=== PATIENT | male | born 1935 | race Caucasian/White ===

== ENCOUNTER → 2018-10-31 | Outpatient (REF) | payer MEDICARE ==
[~2018-10-31] MED LIST: AMLODIPINE BESYL5 MG PO; ANTIVERT PO; BENICAR40 MG PO; C 250 PO; COLCHICINE0.6 M1 OR; CONTRAVE 8-90 M1 TAB PO; COUMADIN1 MG PO; COUMADIN3 MG PO; COUMADIN5 MG PO; FAMOTIDINE20 M1 PO; FISH OIL1000 M2 PO; HYALURONIC20 MG PO; LORTAB5 PO; LYCOPENE PO; MEDDOSEPAK OR; MULTI VIT PO; OMEPRAZOLE10 MG PO; PRAVASTATIN10 MG PO; SAW PALMETTO1 CAP PO; SELENIUM200 MC1 PO; TURMERI1 PO; ULORIC40 MG PO; VITAMIN D2000 UNI2 PO; VITAMIN E400 UNIT PO; ZOFRAN ODT4 MG PO
[2018-10-31 08:48] LABS: CREATININE 1.5 mg/dL (0.7-1.3)
[2018-10-31 08:49] LABS: POTASSIUM 4.2 mmol/l (3.5-5.1)
== END | disposition home or self-care (01) ==
LOC: LAB 08:04
PROVIDERS: ATTEND Nurse Practitioner
DX: N18.3 Chronic kidney disease, stage 3 (moderate) (principal)

== ENCOUNTER 2019-09-05 | Emergency (ER) | payer MEDICARE ==
[2019-09-05] MEDS ORDERED: [UNRECOGNIZED DRUG - CODE] PO (06:07)
[2019-09-05] MEDS ORDERED: CIMETIDINE PO (06:08)
[2019-09-05] MEDS ORDERED: CO Q-10150 MG PO (06:09)
[2019-09-05] MEDS ORDERED: GNP LANSOPRAZOL15 MG PO (06:10)
[2019-09-05 06:49] LABS: HEMATOCRIT 49.7 % (39.0-50.0); HEMOGLOBIN 15.9 g/dl (14.0-18.0); IMMATURE GRANULOCYTES 0.5 % (0.0-5.0); MEAN CELL VOLUME 91.7 fL CALC (80.0-100.0); MEAN CORPUSCULAR HGB 29.3 pG CALC (26.0-32.0); NEUT# 4.02 thou/uL (1.82-7.42); RED BLOOD COUNT 5.42 mill/uL (4.70-6.10); RED CELL DISTRI WIDTH 16.2 % (11.5-15.5)
[2019-09-05 07:02] LABS: ALBUMIN 4.1 g/dL (3.2-5.0); ALKALINE PHOSPHATASE 89 u/l (38-126); ANION GAP 14 (6-22 (CALC)); BILIRUBIN, TOTAL 1.1 mg/dL (0.0-1.4); BUN 18 mg/dL (8-23); BUN/CREATININE RATIO 16 (12-20 (CALC)); CARBON DIOXIDE 25 mmol/l (22-30); CHLORIDE 104 mmol/l (95-108); CREATININE 1.1 mg/dL (0.7-1.3); GFR > 60 ML/MIN (>=60 (CALC)); GFR FOR AFR.AMER. > 60 ML/MIN (>=60 (CALC)); POTASSIUM 4.3 mmol/l (3.5-5.1); SGOT/AST 46 u/l (19-48); SODIUM 139 mmol/l (137-146); TOTAL PROTEIN 7.5 g/dL (6.3-8.2)
[2019-09-05 07:09] LABS: INTERNATIONAL NORMALIZED RATIO 2.4 RATIO (0.7-1.3)
[2019-09-05 07:30] LABS: URINE BILIRUBIN - DIPSTICK NEGATIVE (NEGATIVE); URINE BLOOD DIPSTICK NEGATIVE (NEGATIVE); URINE COLOR YELLOW; URINE GLUCOSE - DIPSTICK NEGATIVE (NEGATIVE); URINE KETONE NEGATIVE (NEGATIVE); URINE LEUK ESTERASE NEGATIVE (NEGATIVE); URINE NITRITE - DIPSTICK NEGATIVE (Negative); URINE PROTEIN - DIPSTICK TRACE mg/dL (NEG-TRACE); URINE UROBILINOGEN - DIPSTICK 0.2 E.U./dL (0.2)
== END 2019-09-05 08:11 | disposition home or self-care (01) ==
PROVIDERS: Emergency Medicine
DX: R31.9 Hematuria, unspecified (principal); N40.0 Benign prostatic hyperplasia without lower urinary tract symptoms; Z86.718 Personal history of other venous thrombosis and embolism; Z79.01 Long term (current) use of anticoagulants

== ENCOUNTER 2019-12-04 13:22 | Inpatient (IN) | payer MEDICARE ==
[~2019-12-04] VITALS: Ht 175.3 cm; Wt 97.1 kg
[2019-12-04] VITALS (9 sets, daily range): BP systolic 106–141; BP diastolic 67–90
[~2019-12-04 13:22] MED LIST changes: +CIMETIDINE PO; +CO Q-10150 MG PO; +GNP LANSOPRAZOL15 MG PO; +[UNRECOGNIZED DRUG - CODE] PO
--- NOTE | 2019-12-04 13:22 | NUR ---
PATIENT TO ROOM VIA EMS AND PHYSICIAN AT BEDSIDE FOR EVAL
[2019-12-04 14:23] LABS: HEMATOCRIT 52.9 % (39.0-50.0); HEMOGLOBIN 17.1 g/dl (14.0-18.0); IMMATURE GRANULOCYTES 0.6 % (0.0-5.0); MEAN CELL VOLUME 97.1 fL CALC (80.0-100.0); MEAN CORPUSCULAR HGB 31.4 pG CALC (26.0-32.0); MEAN CORPUSCULAR HGB CONC 32.3 g/dL CAL (32.0-36.0); NEUT# 5.41 thou/uL (1.82-7.42); RED BLOOD COUNT 5.45 mill/uL (4.70-6.10); RED CELL DISTRI WIDTH 15.2 % (11.5-15.5)
[2019-12-04 14:35] LABS: ALBUMIN 4.2 g/dL (3.2-5.0); CREATININE 1.4 mg/dL (0.7-1.3); POTASSIUM 4.9 mmol/l (3.5-5.1); TOTAL PROTEIN 7.6 g/dL (6.3-8.2)
[2019-12-04 14:43] LABS: D-DIMER 12.4 mg/L (0.19-0.60)
--- NOTE | 2019-12-04 14:45 | NUR ---
PT SITTING UP ON STRETCHER. NO APPARENT DISTRESS. RESP EVEN AND UNLABORED. AFEBRILE. ADVISED OF WAIT TIME FOR TEST RESULTS. PT VOICED UNDERSTANDING. CALL LIGHT WITHIN REACH.
[2019-12-04 14:49] LABS: BILIRUBIN, TOTAL 1.5 mg/dL (0.0-1.4)
[2019-12-04 14:54] LABS: PROTHROMBIN TIME 10.9 SECONDS (9.0-12.5)
--- NOTE | 2019-12-04 16:05 | NUR ---
PT RETURNED FROM CT. NO APPARENT DISTRESS. IV FLUIDS INFUSING. SITE HEALTHY. CALL LIGHT WITHINR EACH. RESP EVEN AND UNLABORED. SATS 94 ON RA
--- NOTE | 2019-12-04 16:51 | NUR ---
MD AT BEDSIDE TO DISCUSS CLINICAL RESULTS AND ADMIT POC. PT VOICED UNDERSTANDING.
[2019-12-04] MEDS ORDERED: TOPROL XL50 MG PO (17:03)
[2019-12-04] MEDS ORDERED: FINASTERIDE5 MG PO (17:04)
[2019-12-04] MEDS ORDERED: ASPIRIN81 MG PO (17:04)
--- NOTE | 2019-12-04 17:40 | NUR ---
COVID 19 SWAB OBTAINED FROM LEFT NARE. PT TOLERATED WELL.
--- NOTE | 2019-12-04 18:25 | NUR ---
REPORT CALLED TO ANGEL COVINGTON ICU PT UP ON IV FLUIDS SITE HEALTHY. VSS.
--- NOTE | 2019-12-04 18:45 | NUR ---
: PATIENT ARRIVES VIA ER WHEELCHAIR ACCOMPANIED BY ER NURSE. ON RA, NO SOB NOTED. PT REPORTS HE ONLY BECOMES SOB WITH EXERTION. NO ACUTE DISTRESS SHOWN. ALERT AND ORIENTED X4, ABLE TO WALK TO ICU BED 1 WITHOUT DIFFICULTY. PANTS AND SHOES TAKEN OFF. SR-ST ON TELEMETRY. AFEBRILE. WEIGHT TAKEN. BP WNL. NKDA. PLACED PATIENT ON 2L/MIN NC DUE TO SATS DROP TO 88%-91% WHEN MOVING AROUND OR CONVERSATING, PATIENT FINGERS ARE COLD WELL. NURSING ASSESSMNET PERFORMED. PATIENT ABLE TO RESPOND TO ALL ADMISSION QUESTIONS. RAC 20 G EMS SITE INTCAT. PLACED A R-HAND 22G IV SITE. STARTED HEPARIN DRIP AT 1948 PER [facility] DOSE HEPARIN PROTOCOL AFTER RECEIVING PTT, ADMINISTERED HEPARIN BOLUS WELL. POC FOR TONIGHT DISCUSSED, PATIENT UNDERSTANDS AND AGREES. PATIENT REQUESTS TO KEEP HIS OWN COMPRESSION STOCKINGS ON. LAST BM 12/03/19. REPORTS HE HAS NOT ATEN BUT IS NOT HUNGRY. CHILLER TENDER COUGH PRESENT. CALL LIGHT WITHIN REACH. URINAL AT BEDSIDE. BASELINE.
[2019-12-04 19:13] LABS: URINE BILIRUBIN - DIPSTICK NEGATIVE (NEGATIVE); URINE BLOOD DIPSTICK NEGATIVE (NEGATIVE); URINE COLOR YELLOW; URINE GLUCOSE - DIPSTICK NEGATIVE (NEGATIVE); URINE KETONE NEGATIVE (NEGATIVE); URINE LEUK ESTERASE NEGATIVE (NEGATIVE); URINE NITRITE - DIPSTICK NEGATIVE (Negative); URINE PROTEIN - DIPSTICK 100 mg/dL (NEG-TRACE); URINE SPECIFIC GRAVITY 1.025; URINE UROBILINOGEN - DIPSTICK 0.2 E.U./dL (0.2)
[2019-12-04 19:14] LABS: URINE RBC 0-2 RBC/hpf (0-5); URINE WBC 0-2 WBC/hpf (0-5)
--- NOTE | 2019-12-04 20:20 | NUR ---
PATIENT'S SIGNIFICANT OTHER MARVIN, CALLED HERE FOR UPDATES, UPDATE GIVEN, REPORTS SHE WILL RELAY THIS TO PATIENT'S SON. 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 I LET HER KNOW SHE CAN BRING TO ER ENTRANCE TO DROP THEM OFF.
--- NOTE | 2019-12-04 21:09 | NUR ---
PATIENT'S SIGNIFICANT OTHER CALLED TO ASK HOW PATIENT IS DOING, UPDATE GIVEN.
--- NOTE | 2019-12-04 23:04 | NUR ---
PATIENT RESTS WITH EYES CLOSED. HOB ABOUT 30 DEGREES. SR ON TELE, HR RANGES 90'S. SATS 91% ON RA. NO ACUTE DISTRES SHOWN. CALL LIGHT WITHIN REACH.
[2019-12-05] VITALS (13 sets, daily range): BP systolic 91–139; BP diastolic 54–89
--- NOTE | 2019-12-05 | NUR ---
PATIENT AWAKENS EASILY WHN SPOKEN TO. REPORTS HE IS UNABLE TO SLEEP, ASSISTED WITH TURNING TO HIS LEFT SIDE. NO ACUTE DISTRESS SHOWN. NO NEEDS AT THIS TIME. EMPTIED 400 ML FROM URINAL. CALL LIGHT WITHIN REACH.
--- NOTE | 2019-12-05 02:21 | NUR ---
BLOD DRAWN FOR PTT DUE AT 0200. PATIENT BECOMES RESTLESS DUE TO I HAD TO ATTEMPT A COUPLE OF TIMES WITH A BUTTERFLY NEEDLE TO DRAW BLOOD AND HE REPORTED IT WAS VERY PAINFUL. NOW LAYS ON RIGHT SIDE. NO NEEDS AT THIS TIME. CALL LIGHT WITHIN REACH.
--- NOTE | 2019-12-05 03:16 | NUR ---
PATIENT IS AWAKE, PLACED THE PULSE OX BACK ON MONITOR SINCE PATIENT TURNS AND IT COMES OFF, SATS 93% ON 2L/MIN NC. NO SOB NOTED. EMPTIED URINAL. CALL LIGHT WITHIN REACH.
[2019-12-05 05:22] LABS: HEMATOCRIT 49.9 % (39.0-50.0); HEMOGLOBIN 16.3 g/dl (14.0-18.0); IMMATURE GRANULOCYTES 0.6 % (0.0-5.0); MEAN CELL VOLUME 96.7 fL CALC (80.0-100.0); MEAN CORPUSCULAR HGB 31.6 pG CALC (26.0-32.0); MEAN CORPUSCULAR HGB CONC 32.7 g/dL CAL (32.0-36.0); NEUT# 4.54 thou/uL (1.82-7.42); RED BLOOD COUNT 5.16 mill/uL (4.70-6.10); RED CELL DISTRI WIDTH 15.2 % (11.5-15.5)
[2019-12-05 06:15] LABS: ANION GAP 14 (6-22 (CALC)); BUN 22 mg/dL (8-23); BUN/CREATININE RATIO 18 (12-20 (CALC)); CARBON DIOXIDE 22 mmol/l (22-30); CHLORIDE 108 mmol/l (95-108); CREATININE 1.3 mg/dL (0.7-1.3); GFR 53 ML/MIN (>=60 (CALC)); GFR FOR AFR.AMER. > 60 ML/MIN (>=60 (CALC)); SODIUM 139 mmol/l (137-146)
--- NOTE | 2019-12-05 08:02 | NUR ---
PT RESTING IN BED, ALERT AND ORIENTED. BLOOD DRAWN FOR PTT. RESPIRATIONS EVEN AND UNLABORED ON O2 @ 2L VIA NC. LUNGS SOUND CLEAR/DIMINISHED. PEDAL PULSES ARE STRONG. PT DENIES ANY PAIN OR DISCOMFORT AT THIS TIME. PT PROVIDED WITH BREAKFAST AND COFFEE, PT STATES "I DON'T FEEL HUNGRY, I FEEL LIKE I'VE LOST MY APPETITE LATELY." ENCOURAGED PT TO TRY TO EAT. TELE IN PLACE. CALL HERCULES WITHIN REACH. WILL CONTINUE TO MONITOR.
--- NOTE | 2019-12-05 08:29 | NUR ---
DR. LANDRY AT BEDSIDE.
--- NOTE | 2019-12-05 09:50 | NUR ---
ASSISTED PT TO THE RESTROOM AND BACK TO BED. PT HAD A BOWEL MOVEMENT. PROVIDED PT WITH PERSONAL ITEMS FROM SIGNIFICANT OTHER. SAFETY PRECAUTIONS IN PLACE. WILL CONTINUE TO MONITOR.
--- NOTE | 2019-12-05 10:20 | NUR ---
PT RESTING IN BED, TALKING ON THE PHONE. TELE IN PLACE. RESPIRATIONS EVEN AND UNLABORED ON O2 @ 2L VIA NC. SAFETY PRECAUTIONS IN PLACE. WILL CONTINUE TO MONITOR.
--- NOTE | 2019-12-05 12:51 | NUR ---
PT RESTING IN BED. RESPIRATIONS EVEN AND UNLABORED ON O2 @ 2L VIA NC. SAFETY PRECAUTIONS IN PLACE. WILL CONTINUE TO MONITOR.
--- NOTE | 2019-12-05 19:20 | NUR ---
AT BEDSIDE WITH PT. DISCUSSED POC. PT DENIED RESP DIFF, NO NEEDS AT THIS TIME. CALL HERCULES IN REACH.
--- NOTE | 2019-12-05 19:30 | NUR ---
PATIENT IS ALERT AND ORIENTED X4, SITS ON THE SIDE OF HIS BED. NO ACUTE DISTRESS SHOWN. REPORTS HE IS ABLE TO BREATHE BETTER AND IS NOT SOB YESTERDAY. ON 2L/MIN NC, SATS 96%. HE IS ABLE TO WALK TO THE BATHROOM WITH 02 AND IV INFSUIONS, HAS A WEAK GAIT, WASHES HIS TEETH AND HIS AFCE, FIXES HIS HAIR. NO REPORTS OF PAIN. NURSING ASSESSMENT PERFORMED. RAC AND RH IV SITES ARE INTACT AND FUNCTIONING PROPERLY. HEPARIN DRIP INFUSING AT 33 ML/HR, NS AT KVO ON R-HAND IV SITE. AFEBRILE. SR ON TELEMETRY. BP WNL. SITS ONSIDE OF BED NOW. IS NOT WEARING HIS BILAT HEARING AIDS, THEY ARE ON BEDSIDE TABLE. EMPTIED URINAL. REPORTS HE WAS ABLE TO TALK TO DR LANDRY AND POC. POC FOR TONIGHT DISCUSSED, PATIENT UNDERSTANDS AND AGREES. NO OTHER NEEDS AT THIS TIME. CALL LIGHT WITHIN REACH.
--- NOTE | 2019-12-05 21:17 | NUR ---
WENT IN ROOM TO PLACE BP CUFF ON RIGHT ARM DUE TO BP READING LOW ON LEFT ARM.MNEW READING WNL. NO ACUTE DISTRESS SHOWN. CALL LIGHT WITHIN REACH.
[2019-12-06] VITALS (8 sets, daily range): BP systolic 91–117; BP diastolic 48–79
--- NOTE | 2019-12-06 01:49 | NUR ---
PATIENT USES URINAL, SITS ON SIDE OF BED, COMPLAINS HE SWEATS AT NIGHTS SOMETIMES. AFEBRILE, SR ON TELE, BP WNL. NO ACUTE DISTRES SHOWN, WEARS NC AT 2 L/MIN, SATS WNL. NO NEEDS AT THIS TIME. LAYS BACK IN BED. CALL LIGHT WITHIN REACH.
[2019-12-06 05:45] LABS: HEMATOCRIT 44.1 % (39.0-50.0); HEMOGLOBIN 14.4 g/dl (14.0-18.0); MEAN CELL VOLUME 97.1 fL CALC (80.0-100.0); MEAN CORPUSCULAR HGB 31.7 pG CALC (26.0-32.0); MEAN CORPUSCULAR HGB CONC 32.7 g/dL CAL (32.0-36.0); RED BLOOD COUNT 4.54 mill/uL (4.70-6.10); RED CELL DISTRI WIDTH 15.5 % (11.5-15.5)
--- NOTE | 2019-12-06 05:45 | NUR ---
ABLE TO DRAW BLOOD FOR LABS THIS MORNING. [facility] EMS SITE REMOVED. 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 NO ACUTE DISTRESS SHOWN. NO NEEDS AT THIS TIME. CALL LIGHT WITHIN REACH.
--- NOTE | 2019-12-06 06:00 | NUR ---
COFFEE PROVIDED, PT AGAIN STATED SHE FEELS MUCH BETTER. NO C/O SOB OR PAIN. CALL HERCULES IN REACH.
--- NOTE | 2019-12-06 06:22 | NUR ---
PATIENT USES URINAL, ASKS WHAT LAB RESULTS ARE BACK YET. QUESTIONS ANSWERED. STILL AWAITING MORE BLOOD RESULTS.
[2019-12-06 06:24] LABS: ALKALINE PHOSPHATASE 82 u/l (38-126); ANION GAP 10 (6-22 (CALC)); BUN 22 mg/dL (8-23); BUN/CREATININE RATIO 18 (12-20 (CALC)); CARBON DIOXIDE 24 mmol/l (22-30); CHLORIDE 108 mmol/l (95-108); CREATININE 1.2 mg/dL (0.7-1.3); GFR 58 ML/MIN (>=60 (CALC)); GFR FOR AFR.AMER. > 60 ML/MIN (>=60 (CALC)); POTASSIUM 4.7 mmol/l (3.5-5.1); SGOT/AST 39 u/l (19-48); SODIUM 138 mmol/l (137-146)
[2019-12-06 06:51] LABS: ALBUMIN 3.1 g/dL (3.2-5.0); TOTAL PROTEIN 5.9 g/dL (6.3-8.2)
--- NOTE | 2019-12-06 08:06 | NUR ---
ENTERED ROOM FOR ASSESSMENT, MEDICATION, AND BRING IN BREAKFAST TRAY. PT AWAKE & ALERT. ABLE TO REPOSITION SELF. PT EXPRESSES INTEREST IN TAKING A SHOWER, DISCUSSED BEDSIDE BATH. PT STATES HE IS ABLE TO TAKE DEEP BREATHS AND BREATH "GOOD" ON RA; NC REMOVED THIS AM AROUND 6 PER SHIFT REPORT. DISCUSSED POC FOR TODAY. DISCUSSED DIFFERENT PO BLOOD THINNERS.
--- NOTE | 2019-12-06 09:28 | NUR ---
dr muse @bedside assessing pt, discussing poc; including med change
[2019-12-06] MEDS ORDERED: ELIQUIS5 MG PO (10:14)
--- NOTE | 2019-12-06 10:15 | NUR ---
discussed new poc with pt & educated on eliquis, answered pts questions. pt refusing bath & teeth brushing right now, will request a shower if he has to stay again tonight. dr muse placed order for dc pending echo results. will call [facility] to deliver new rx. pt using urinal, curtains drawn.
--- NOTE | 2019-12-06 10:20 | NUR ---
PHILIP, NUTRITION, @BEDSIDE.
--- NOTE | 2019-12-06 10:30 | NUR ---
PT NEGATIVE FOR COVID-19, PER LAB.
--- NOTE | 2019-12-06 10:32 | NUR ---
[facility] WILL DELIVER RX TO PERSONAL PROPERTY ASSESSOR FOR US TO BANDAGE WRAPPING MACHINE OPERATOR & BRING BACK TO PT.
--- NOTE | 2019-12-06 11:07 | NUR ---
PT REMOVED FROM ISOLATION PRECAUTIONS D/T NEGATIVE COVID RESULTS. SPENT TIME IN ROOM JUST TALKING WITH PT.
--- NOTE | 2019-12-06 11:32 | NUR ---
PT SITTING ON THE SIDE OF THE BED, TALKING ON PERSONAL CELL TO GIRLFRIEND. EATING LUNCH OFF BEDSIDE TABLE.
--- NOTE | 2019-12-06 12:44 | NUR ---
U/S ECHO BEING DONE @BEDSIDE.
--- NOTE | 2019-12-06 14:41 | NUR ---
dietary @bedside for dinner preferences. d/c pending echo preliminary results.
--- NOTE | 2019-12-06 15:37 | NUR ---
called radiology for echo preliminary report status
--- NOTE | 2019-12-06 16:02 | NUR ---
prelimary results sent to dr muse, who will consult dr ovalle. pt states "he's at the point in his life where he figures he only has a couple years left and doesnt want to live it running around to all kinds of doctors."
--- NOTE | 2019-12-06 16:35 | NUR ---
PT EDUCATED ON DC INSTRUCTIONS, INCLUDING WHEN TO RETURN TO ER, TO WATCH FOR BLEEDING, AVOID ACTIVITIES THAT CAUSE BLEEDING, IMPORTANCE OF F/UP CARE. PT WILL CALL TO SCHEDULE APPT WITH R[facility]WAN ON MONDAY. PT WILL LICENSED PHYSICAL THERAPY ASSISTANT MEDICATION AT [facility] ON WAY HOME.
--- NOTE | 2019-12-06 16:45 | NUR ---
PT DRESSED SELF, WILL CALL LONGTIME GIRLFRIEND GEMINI TO COME PICK HIM UP.
--- NOTE | 2019-12-06 16:52 | NUR ---
PT TAKEN OUT BY WC IN STABLE CONDITION WITH ALL BELONGINGS. PICKED UP BY GEMINI.
== END 2019-12-06 16:52 | disposition home or self-care (01) | DRG 175 ==
LOC: ED 13:22 → ED-I 16:30 → ED 16:56 → ICU 16:57
PROVIDERS: Family Medicine; ADMIT Internal Medicine; ATTEND Internal Medicine
DX: I26.09 Other pulmonary embolism with acute cor pulmonale (principal); R06.03 Acute respiratory distress; I12.9 Hypertensive chronic kidney disease with stage 1 through stage 4 chronic kidney disease, or unspecified chronic kidney disease; N18.9 Chronic kidney disease, unspecified; R79.89 Other specified abnormal findings of blood chemistry; N40.0 Benign prostatic hyperplasia without lower urinary tract symptoms; M19.90 Unspecified osteoarthritis, unspecified site; Z86.718 Personal history of other venous thrombosis and embolism; Z20.828 Contact with and (suspected) exposure to other viral communicable diseases
CPT/HCPCS: J1644; Q9967

== ENCOUNTER 2020-05-29 18:59 | Emergency (ER) | payer MEDICARE ==
[~2020-05-29] VITALS: Ht 175.3 cm; Wt 102.6 kg
[~2020-05-29 18:59] MED LIST changes: +ASPIRIN81 MG PO; +ELIQUIS5 MG PO; +FINASTERIDE5 MG PO; +TOPROL XL50 MG PO
[2020-05-29] MEDS ORDERED: ALLOPURINOL100 MG PO (19:38)
[2020-05-29] MEDS ORDERED: PRESSER VISION PO (19:40)
[2020-05-29] MEDS ORDERED: PROSTA GENIX PO (19:41)
[2020-05-29] MEDS ORDERED: [UNRECOGNIZED DRUG - OTHER] PO (19:42)
[2020-05-29 19:43] LABS: HEMATOCRIT 47.7 % (39.0-50.0); HEMOGLOBIN 15.7 g/dl (14.0-18.0); IMMATURE GRANULOCYTES 0.4 % (0.0-5.0); MEAN CELL VOLUME 99.4 fL CALC (80.0-100.0); MEAN CORPUSCULAR HGB 32.7 pG CALC (26.0-32.0); MEAN CORPUSCULAR HGB CONC 32.9 g/dL CAL (32.0-36.0); NEUT# 5.74 thou/uL (1.82-7.42); RED BLOOD COUNT 4.8 mill/uL (4.70-6.10); RED CELL DISTRI WIDTH 14.6 % (11.5-15.5)
[2020-05-29] MEDS ORDERED: MAG OXIDE400 MG PO (19:44)
[2020-05-29 19:56] LABS: ALBUMIN 4.2 g/dL (3.2-5.0); ALKALINE PHOSPHATASE 99 u/l (38-126); ANION GAP 15 (6-22 (CALC)); BILIRUBIN, TOTAL 1.3 mg/dL (0.0-1.4); BUN 21 mg/dL (8-23); BUN/CREATININE RATIO 19 (12-20 (CALC)); CARBON DIOXIDE 23 mmol/l (22-30); CHLORIDE 102 mmol/l (95-108); CREATININE 1.1 mg/dL (0.7-1.3); GFR > 60 ML/MIN (>=60 (CALC)); GFR FOR AFR.AMER. > 60 ML/MIN (>=60 (CALC)); POTASSIUM 4.5 mmol/l (3.5-5.1); SGOT/AST 43 u/l (19-48); SODIUM 135 mmol/l (137-146); TOTAL PROTEIN 7.1 g/dL (6.3-8.2)
[2020-05-29 21:44] LABS: URINE BILIRUBIN - DIPSTICK NEGATIVE (NEGATIVE); URINE BLOOD DIPSTICK NEGATIVE (NEGATIVE); URINE COLOR YELLOW; URINE GLUCOSE - DIPSTICK NEGATIVE (NEGATIVE); URINE KETONE NEGATIVE (NEGATIVE); URINE LEUK ESTERASE NEGATIVE (NEGATIVE); URINE NITRITE - DIPSTICK NEGATIVE (Negative); URINE PROTEIN - DIPSTICK NEGATIVE (NEG-TRACE); URINE UROBILINOGEN - DIPSTICK 0.2 E.U./dL (0.2)
[2020-05-29 22:07] VITALS: BP 126/61
== END 2020-05-29 22:07 | disposition home or self-care (01) ==
LOC: ED 18:59
PROVIDERS: Family Medicine
DX: B34.9 Viral infection, unspecified (principal); I12.9 Hypertensive chronic kidney disease with stage 1 through stage 4 chronic kidney disease, or unspecified chronic kidney disease; N18.3 Chronic kidney disease, stage 3 (moderate); C91.10 Chronic lymphocytic leukemia of B-cell type not having achieved remission; Z20.828 Contact with and (suspected) exposure to other viral communicable diseases; Z86.718 Personal history of other venous thrombosis and embolism

== ENCOUNTER 2021-04-04 09:32 | Emergency (ER) | payer MEDICARE ==
[~2021-04-04] VITALS: Ht 175.3 cm; Wt 120.0 kg
[~2021-04-04 09:32] MED LIST changes: +ALLOPURINOL100 MG PO; +MAG OXIDE400 MG PO; +PRESSER VISION PO; +PROSTA GENIX PO; +[UNRECOGNIZED DRUG - OTHER] PO
[2021-04-04] MEDS ORDERED: ELDERBERRY PO (10:05)
[2021-04-04] MEDS ORDERED: ELIQUIS5 MG PO (10:07)
[2021-04-04] MEDS ORDERED: FEVERFEW380 MG PO (10:09)
[2021-04-04] MEDS ORDERED: [UNRECOGNIZED DRUG - OTHER] PO (10:11)
[2021-04-04] MEDS ORDERED: GRAPESEED PO (10:12)
[2021-04-04] MEDS ORDERED: PRESERVISION PO (10:17)
[2021-04-04] MEDS ORDERED: B121000 MC1 PO (10:20)
[2021-04-04 10:31] LABS: HEMATOCRIT 44.1 % (39.0-50.0); HEMOGLOBIN 13.8 g/dl (14.0-18.0); IMMATURE GRANULOCYTES 0.1 % (0.0-5.0); MEAN CELL VOLUME 106.3 fL CALC (80.0-100.0); MEAN CORPUSCULAR HGB 33.3 pG CALC (26.0-32.0); MEAN CORPUSCULAR HGB CONC 31.3 g/dL CAL (32.0-36.0); PLATELET COUNT 181 thou/uL (130-400); RED BLOOD COUNT 4.15 mill/uL (4.70-6.10); RED CELL DISTRI WIDTH 14.4 % (11.5-15.5)
[2021-04-04 10:32] LABS: MANUAL DIFFERENTIAL YES
[2021-04-04 10:41] LABS: ALBUMIN 4.4 g/dL (3.2-5.0); BILIRUBIN, TOTAL 0.6 mg/dL (0.0-1.4); CREATININE 1.4 mg/dL (0.7-1.3); POTASSIUM 4.8 mmol/l (3.5-5.1); TOTAL PROTEIN 7.1 g/dL (6.3-8.2)
[2021-04-04 10:42] LABS: INTERNATIONAL NORMALIZED RATIO 1.1 RATIO (0.7-1.3)
[2021-04-04 10:58] LABS: BAND 1 % (0-8)
[2021-04-04] MEDS ORDERED: AMOX/K CLAV875 M1 PO (11:11)
[2021-04-04 11:40] VITALS: BP 140/80
== END 2021-04-04 11:46 | disposition home or self-care (01) ==
LOC: ED 09:32
DX: R04.0 Epistaxis (principal); J32.0 Chronic maxillary sinusitis; I12.9 Hypertensive chronic kidney disease with stage 1 through stage 4 chronic kidney disease, or unspecified chronic kidney disease; N18.30 Chronic kidney disease, stage 3 unspecified; C91.10 Chronic lymphocytic leukemia of B-cell type not having achieved remission; N40.0 Benign prostatic hyperplasia without lower urinary tract symptoms; K21.9 Gastro-esophageal reflux disease without esophagitis; Z86.718 Personal history of other venous thrombosis and embolism; Z87.11 Personal history of peptic ulcer disease; Z79.01 Long term (current) use of anticoagulants

== ENCOUNTER 2021-04-05 00:29 | Emergency (ER) | payer MEDICARE ==
[~2021-04-05 00:29] MED LIST changes: +AMOX/K CLAV875 M1 PO; +B121000 MC1 PO; +ELDERBERRY PO; +FEVERFEW380 MG PO; +GRAPESEED PO; +PRESERVISION PO; +[UNRECOGNIZED DRUG - OTHER] PO
[2021-04-05 01:49] VITALS: BP 127/55
== END 2021-04-05 01:55 | disposition home or self-care (01) ==
LOC: ED 00:29
PROC: 2Y41X5Z Packing of Nasal Region using Packing Material (ICD-10-PCS; principal; 2021-04-05)
DX: R04.0 Epistaxis (principal); H72.92 Unspecified perforation of tympanic membrane, left ear; I12.9 Hypertensive chronic kidney disease with stage 1 through stage 4 chronic kidney disease, or unspecified chronic kidney disease; N18.30 Chronic kidney disease, stage 3 unspecified; C91.10 Chronic lymphocytic leukemia of B-cell type not having achieved remission; N40.0 Benign prostatic hyperplasia without lower urinary tract symptoms; K21.9 Gastro-esophageal reflux disease without esophagitis; Z86.718 Personal history of other venous thrombosis and embolism; Z87.11 Personal history of peptic ulcer disease; Z79.01 Long term (current) use of anticoagulants

== ENCOUNTER 2021-04-07 11:50 | Emergency (ER) | payer MEDICARE ==
[2021-04-07 13:12] VITALS: BP 145/67
== END 2021-04-07 13:23 | disposition home or self-care (01) ==
LOC: ED 11:50
DX: Z48.00 Encounter for change or removal of nonsurgical wound dressing (principal); I12.9 Hypertensive chronic kidney disease with stage 1 through stage 4 chronic kidney disease, or unspecified chronic kidney disease; N18.30 Chronic kidney disease, stage 3 unspecified; C91.10 Chronic lymphocytic leukemia of B-cell type not having achieved remission; K21.9 Gastro-esophageal reflux disease without esophagitis; Z86.718 Personal history of other venous thrombosis and embolism

== ENCOUNTER 2021-05-26 09:10 | Inpatient (IN) | payer MEDICARE ==
[~2021-05-26] VITALS: Ht 175.3 cm; Wt 95.0 kg
--- NOTE | 2021-05-26 09:10 | NUR ---
PATIENT BROUGHT TO ROOM VIA WHEEL CHAIR, ABLE TO AMBULATE TO BED WITHOUT DIFFICULTY
[2021-05-26 10:10] LABS: HEMATOCRIT 40.7 % (39.0-50.0); HEMOGLOBIN 12.8 g/dl (14.0-18.0); MEAN CORPUSCULAR HGB 33.3 pG CALC (26.0-32.0); MEAN CORPUSCULAR HGB CONC 31.4 g/dL CAL (32.0-36.0); PLATELET COUNT 213 thou/uL (130-400); RED BLOOD COUNT 3.84 mill/uL (4.70-6.10); RED CELL DISTRI WIDTH 16.3 % (11.5-15.5)
[2021-05-26 10:11] LABS: MANUAL DIFFERENTIAL YES
[2021-05-26 10:25] LABS: ALBUMIN 4.2 g/dL (3.2-5.0); ALKALINE PHOSPHATASE 88 u/l (38-126); BUN 35 mg/dL (8-23); BUN/CREATININE RATIO 27 (12-20 (CALC)); CHLORIDE 106 mmol/l (95-108); CREATININE 1.3 mg/dL (0.7-1.3); GFR 52 ML/MIN (>=60 (CALC)); GFR FOR AFR.AMER. > 60 ML/MIN (>=60 (CALC)); POTASSIUM 4.7 mmol/l (3.5-5.1); SGOT/AST 41 u/l (19-48); SODIUM 137 mmol/l (137-146); TOTAL PROTEIN 6.9 g/dL (6.3-8.2)
[2021-05-26 10:28] LABS: ANION GAP 14 (6-22 (CALC)); BILIRUBIN, TOTAL 1.4 mg/dL (0.0-1.4); CARBON DIOXIDE 22 mmol/l (22-30)
[2021-05-26 10:29] LABS: BAND 1 % (0-8); PLATELET ESTIMATE NORMAL
--- NOTE | 2021-05-26 12:20 | NUR ---
TELEPHONE CALL FOR PATIENT TRANSFERED TO [facility]
[2021-05-26 12:52] LABS: URINE BILIRUBIN - DIPSTICK NEGATIVE (NEGATIVE); URINE BLOOD DIPSTICK NEGATIVE (NEGATIVE); URINE COLOR YELLOW; URINE GLUCOSE - DIPSTICK NEGATIVE (NEGATIVE); URINE KETONE NEGATIVE (NEGATIVE); URINE LEUK ESTERASE NEGATIVE (NEGATIVE); URINE PROTEIN - DIPSTICK TRACE mg/dL (NEG-TRACE); URINE UROBILINOGEN - DIPSTICK 0.2 E.U./dL (0.2)
[2021-05-26 12:53] LABS: URINE NITRITE - DIPSTICK NEGATIVE (Negative)
[2021-05-26] MEDS ORDERED: FINASTERIDE5 MG PO (12:58)
[2021-05-26] MEDS ORDERED: ELIQUIS5 MG PO (12:58)
[2021-05-26] MEDS ORDERED: TOPROL XL50 MG PO (12:59)
[2021-05-26] MEDS ORDERED: PREDNISONE20 MG PO (12:59)
[2021-05-26] MEDS ORDERED: CALQUENCE100 MG PO (12:59)
[2021-05-26] MEDS ORDERED: ALLOPURINOL100 MG PO (13:00)
--- NOTE | 2021-05-26 13:01 | NUR ---
Reassessment of patient completed. No distress noted.
--- NOTE | 2021-05-26 13:20 | NUR ---
REPORT RECEIVED FROM NADYA CHAHAL
--- NOTE | 2021-05-26 13:22 | NUR ---
REPORT CALL TO MED/SURG NURSE FOR ROOM 280
[2021-05-26 13:33] VITALS: BP 132/68
--- NOTE | 2021-05-26 13:33 | NUR ---
PT ARRIVED TO MED/SURG ROOM 280 IN STABLE CONDITION VIA WC ACCOMPANIED BY IONA BECKER;PT AMBULATED TO RESTROOM AND BEDSIDE WITH A STEADY GAIT;PT A&O X3, ORIENTED TO ROOM AND CALL LIGHT SYSTEM;WT AND VS OBTAINED AT THIS TIME;PT REPORTS HEADACHE PAIN RATING 2/10 ON THE PAIN SCALE AND REQUESTS PRN PAIN MEDICATION,PT TO BE MEDICATED WITH PRN TYLNEOL 650MG PO;RESPIRATIONS EVEN AND UNLABORED ON RA,CLEAR LUNG SOUNDS;ABDOMEN SOFT ON PALPATION AND ACTIVE IN ALL 4 QUADRANTS,LAST BM 05/25/21;WEAK PEDAL PULSES;LLE RED/WARM TO TOUCH;SITE MARKED WITH A SKIN SENSITIVE MARKER AND PHOTO OBTAINED/PLACED IN CHART;LLE ELEVATED ON A PILLOW;TELE MONITORING IN PLACE;#18G TO RAC FLUSHED AND PATENT, NS TO BE STARTED AT 100ML/HR PER ORDER;FALL AND ALLERGY BAND APPLIED TO LEFT ARM;PT DENIES ANY ADDITIONAL NEEDS AND IS ENCOURAGED TO CALL FOR ASSISTANCE IF NEEDED;FALL PRECAUTIONS IN PLACE WITH BED IN THE LOWEST POSITION AND CALL LIGHT IN REACH;WILL CONTINUE TO MONITOR
--- NOTE | 2021-05-26 13:57 | NUR ---
LIYA PATTERSON AT BEDSIDE DISCUSSING POC.
--- NOTE | 2021-05-26 14:09 | NUR ---
PT MEDICATED WITH PRN TYLENOL 650MG PO FOR HEADACHE PAIN RATING 2/10 ON THE PAIN SCALE,WILL CONTINUE TO MONITOR FOR EFFECTIVENESS
--- NOTE | 2021-05-26 14:14 | NUR ---
S: DESMOND NGUYEN is a 85 M who presents with cellulitis of left lower leg, pneumonia of both lower lobes, and chronic lymphocytic leukemia. He has a history of cancer (CLL stage 0), HTN, BPH, GERD, DVT, arthritis, skin cancer in scalp and nose, hematuria, H. pylori, stomach ulcers, CKD stage 3, and L-eye macular degeneration. All medications in patient's chart were reviewed. O: VS: BP 113/61 mmHg, P 76 bpm, RR 20 breath/min, T 97.4 F W 100.9 kg, HT 69 in, Scr= 1.3 mg/dL, CrCl= 49 ml/min A: Blood culture is pending. P: Patient is on Zosyn 3.375g IV Q6H. Vancomycin ordered for pharmacy to dose. Start Vancomycin 1500mg IV Q24H. Vancomycin trough is drawn before the 4th dose on 05/29/21 @ 0830. Vancomycin goal trough is between 15-20 mcg/ml. Pharmacy will follow and or advise on antibiotics use as needed.
--- NOTE | 2021-05-26 15:15 | NUR ---
PT APPEARS TO BE SLEEPING IN RIGHT SIDE LAYING POSITION;RESPIRATIONS EVEN AND UNLABORED ON RA;NO S/S OF DISTRESS NOTED;TELE MONITORING IN PLACE;IV SITE PATENT INFUSING NS @ 100ML/HR;ALL SAFETY PRECAUTIONS IN PLACE WITH BED IN THE LOWEST POSITION AND CALL LIGHT IN REACH;WILL CONTINUE TO MONITOR
[2021-05-26 16:19] VITALS: BP 122/57
[2021-05-26 16:22] VITALS: BP 122/57
[2021-05-26 19:00] VITALS: BP 123/64
--- NOTE | 2021-05-26 19:20 | NUR ---
PT RESTING IN BED, NO SIGNS OF DISTRESS NOTED, RESP EVEN AND UNLABORED. PT ALERT AND ORIENTED X3, VERY HARD OF HEARING. DISCUSSED POC, PT VERBALIZED UNDERSTANDING. PT C/O PAIN 02/11 TO R HIP, PT MEDICATED PER MAR. NOTED SEVERE REDNESS TO LLE, HOT TO TOUCH, SHINY, NO OPEN AREA OR DRAINAGE NOTED. LLE ELEVATED ON PILLOWS. ASSESSMENT COMPLETED, CALL LIGHT IN REACH,CONTINUE TO MONITOR.
--- NOTE | 2021-05-26 22:50 | NUR ---
PT RESTING IN BED WITH EYES CLOSED, EASILY AROUSED TO VERBAL STIMULI, NEW IV BAG HUNG AT THIS TIME, IV PATENT, IVF INFUSING WITHOUT DIFFICULTY. CALL LIGHT IN REACH, LLE ELEVATED, CONTINUE TO MONITOR.
[2021-05-27] VITALS: BP 136/58
--- NOTE | 2021-05-27 | NUR ---
PT RESTING IN BED, ZOSYN INFUSION INITAITED, VITALS OBTAINED, NO SIGNS OF DISTRESS NOTED, RESP EVEN AND UNLABORED. CALL LIGHT IN REACH,CONTINUE TO MONITOR.
--- NOTE | 2021-05-27 02:28 | NUR ---
PT UP TO BSC FREQUENTLY TO VOID, PT C/O HEADACHE AND NAUSEA. PT MEDICATED PER MAR. SITTING ON SIDE OF BED. NO SIGNS OF DISTRESS NOTED, RESP EVEN AND UNLABORED. CALL LIGHT IN REACH,CONTINUE TO MONITOR.
--- NOTE | 2021-05-27 03:37 | NUR ---
PT RESTING IN BED WITH EYES CLOSED, NO SIGNS OF DISTRESS NOTED, RESP EVEN AND UNLABORED. CALL LIGHT IN REACH,CONTINUE TO MONITOR.
[2021-05-27 04:00] VITALS: BP 107/56
--- NOTE | 2021-05-27 05:12 | NUR ---
PT RESTING IN BED WITH EYES CLOSED, NO SIGNS OF DISTRESS NOTED, RESP EVEN AND UNLABOROED. CALL LIGHT IN REACH,CONTINUE TO MONITOR.
[2021-05-27 06:06] LABS: HEMATOCRIT 34.8 % (39.0-50.0); MEAN CELL VOLUME 107.1 fL CALC (80.0-100.0); MEAN CORPUSCULAR HGB 33.8 pG CALC (26.0-32.0); MEAN CORPUSCULAR HGB CONC 31.6 g/dL CAL (32.0-36.0); RED BLOOD COUNT 3.25 mill/uL (4.70-6.10); RED CELL DISTRI WIDTH 16.8 % (11.5-15.5)
[2021-05-27 06:07] LABS: CREATININE 1.4 mg/dL (0.7-1.3); MAGNESIUM 1.8 mg/dL (1.6-2.3); POTASSIUM 4.3 mmol/l (3.5-5.1)
--- NOTE | 2021-05-27 08:00 | NUR ---
BEDSIDE REPORT RECEIVED ON CHANGE OF SHIFT. PT LYING IN BED SITTING UP AWAITING BREAKFAST. ASSESSMENT PERFORMED. NO COMPLAINTS, WILL CONTINUE TO MONITOR.
[2021-05-27 08:01] VITALS: BP 132/67
--- NOTE | 2021-05-27 09:38 | NUR ---
Pt screened by ST. Pt may benefit from a swallow evaluation given dx of PNA if medical team agrees.
[2021-05-27 10:46] VITALS: BP 120/62; BP 149/96
[2021-05-27 15:12] VITALS: BP 106/51
[2021-05-27 19:00] VITALS: BP 104/46
--- NOTE | 2021-05-27 20:00 | NUR ---
Patient is alert and oriented x3. Able to make needs known. Resp even and unlabored. hr reg. Telemetry SR 76. No complaints verbalized. LLE edemetous, red, warm with corina for where infection stops. Reports having a BM today. No complaints. Assessment completed and charted. Bed in low position. Call light within reach.
[2021-05-28] VITALS (7 sets, daily range): BP systolic 108–119; BP diastolic 56–66
--- NOTE | 2021-05-28 00:30 | NUR ---
Patient had to urinate around 2300, patient could not hold urine, sat on side of bed and urinated all over the floor. Nikko COVINGTON observed and assisted patient with clean up. At 0015, patient had loose BM in bed, Nikko COVINGTON observed, cleaned patient up and changed linens. Patient resting quietly in bed. Bed in low position. Call light within reach.
--- NOTE | 2021-05-28 03:11 | NUR ---
PATIENT RESTING WITH EYES CLOSED. NO ACUTE DISTRESS OBSERVED. TYLENOL GIVEN FOR HEADACHE WITH POSITIVE EFFECT.
--- NOTE | 2021-05-28 04:37 | NUR ---
Patient up to [facility] to void and evacuate. Continues with loose stool.
[2021-05-28 05:45] LABS: ANION GAP 12 (6-22 (CALC)); BUN 30 mg/dL (8-23); BUN/CREATININE RATIO 22 (12-20 (CALC)); CARBON DIOXIDE 21 mmol/l (22-30); CHLORIDE 106 mmol/l (95-108); CREATININE 1.3 mg/dL (0.7-1.3); GFR 52 ML/MIN (>=60 (CALC)); GFR FOR AFR.AMER. > 60 ML/MIN (>=60 (CALC)); SODIUM 135 mmol/l (137-146)
[2021-05-28 06:04] LABS: HEMATOCRIT 31.6 % (39.0-50.0); HEMOGLOBIN 9.7 g/dl (14.0-18.0); MEAN CELL VOLUME 107.8 fL CALC (80.0-100.0); MEAN CORPUSCULAR HGB 33.1 pG CALC (26.0-32.0); MEAN CORPUSCULAR HGB CONC 30.7 g/dL CAL (32.0-36.0); RED BLOOD COUNT 2.93 mill/uL (4.70-6.10); RED CELL DISTRI WIDTH 16.7 % (11.5-15.5)
--- NOTE | 2021-05-28 08:00 | NUR ---
BEDSIDE REPORT RECEIVED AT CHANGE OF SHIFT. ASSESSMENT PERFORMED. PT UP TO CHAIR. NO COMPLAINTS WILL CONTINUE TO MONITOR.
--- NOTE | 2021-05-28 14:45 | NUR ---
CRITICAL RESULT TO STOOL SAMPLE, VIBRIO CHOLERAE. REPORTED TO Jim STATON.
--- NOTE | 2021-05-28 17:35 | NUR ---
PT STATED HEADACHE WENT AWAY, MEDICATION RETURNED TO [facility]
--- NOTE | 2021-05-28 18:05 | NUR ---
DR KEVIN CALLED REGARDING CRITICAL STOOL CULTURE, STATED HE IS ORDERING AZITHROMYCIN 1G.
--- NOTE | 2021-05-28 21:30 | NUR ---
PT RESTING IN BED, NO SIGNS OF DISTRESS NOTED, RESP EVEN AND UNLABORED. PT ALERT AND ORIENTED X3, WICHITA, DISCUSSED POC, PT STATES HE HAD A BM, BSC EMPTIED. PT ON CONTACT PRECAUTIONS FOR VIBRIOCHOLERAE, ASSESSMENT COMLETED, LLE ELEVATED ON PILLOWS, NOTED WARM TO TOUCH, PT STATES IT HAS "GOTTEN BETTER". CALL LIGHT IN REACH,CONTINUE TO MONITOR.
--- NOTE | 2021-05-28 23:56 | NUR ---
PT STATES HE IS UNABLE TO SLEEP AND REALLY NEEDS TO GET SOME SLEEP, PT MEDICATED WITH ZALEPLON, NO SIGNS OF DISTRESS NOTED, RESP EVEN AND UNLABORED, CALL LIGHT IN REACH,CONTINUE TO MONITOR.
[2021-05-29 04:00] VITALS: BP 127/71
--- NOTE | 2021-05-29 04:00 | NUR ---
PT RESTING IN BED WITH EYES CLOSED, NO SIGNS OF DISTRESS NOTED, RESP EVEN AND UNLABORED. CALL LIGHT IN REACH,CONTINUE TO MONITOR.
--- NOTE | 2021-05-29 05:08 | NUR ---
MAINSTREAMING FACILITATOR AT BEDSIDE TO OBTAIN AM LABS, NO SIGNS OF DISTRESS NOTED, RESP EVEN AND UNLABORED. CALL LIGHT IN REACH,CONTINUE TO MONITOR.
[2021-05-29 05:45] LABS: HEMATOCRIT 32.8 % (39.0-50.0); HEMOGLOBIN 10.2 g/dl (14.0-18.0); MEAN CELL VOLUME 108.3 fL CALC (80.0-100.0); MEAN CORPUSCULAR HGB 33.7 pG CALC (26.0-32.0); MEAN CORPUSCULAR HGB CONC 31.1 g/dL CAL (32.0-36.0); RED BLOOD COUNT 3.03 mill/uL (4.70-6.10); RED CELL DISTRI WIDTH 16.4 % (11.5-15.5)
[2021-05-29 05:52] LABS: ANION GAP 13 (6-22 (CALC)); BUN 30 mg/dL (8-23); BUN/CREATININE RATIO 23 (12-20 (CALC)); CARBON DIOXIDE 22 mmol/l (22-30); CHLORIDE 107 mmol/l (95-108); CREATININE 1.3 mg/dL (0.7-1.3); GFR 52 ML/MIN (>=60 (CALC)); GFR FOR AFR.AMER. > 60 ML/MIN (>=60 (CALC)); POTASSIUM 4.1 mmol/l (3.5-5.1); SODIUM 138 mmol/l (137-146)
--- NOTE | 2021-05-29 07:15 | NUR ---
BEDSIDE REPORT RECEIVED, PT LYIING IN BED ASLEEP. WILL CONTINUE TO MONITOR.
[2021-05-29 08:00] VITALS: BP 126/68
--- NOTE | 2021-05-29 08:28 | NUR ---
PT UP TO CHAIR FOR BREAKFAST. ASSESSMENT PERFORMED, TELEPHONE ENGINEER. NO COMPLAINTS/DISTRESS. WILL MONITOR.
[2021-05-29 12:21] VITALS: BP 121/70
[2021-05-29 16:46] VITALS: BP 108/64
--- NOTE | 2021-05-29 17:35 | NUR ---
PT SITTING IN CHAIR. EXPERIMENTAL PHYSICIST NO COMPLAINTS. WILL MONITOR.
[2021-05-29 19:00] VITALS: BP 112/64
--- NOTE | 2021-05-29 19:30 | NUR ---
PATIENT ALERT AND ORIENTED. ABLE TO MAKE NEEDS KNOWN. PLEASANT AND COOPERATIVE WITH CARE. DENIES ANY PAIN OR DISCOMFORT. ASSESSMENT COMPLETE. BED IN LOWEST POSITION. CALL LIGHT AND BELONGINGS WITHIN REACH.
[2021-05-30] VITALS: BP 113/58
--- NOTE | 2021-05-30 00:30 | NUR ---
PATIENT RESTING IN BED WITH EYES CLOSED. NO SIGNS OF DISTRESS OR PAIN NOTED. CALL LIGHT AND BELONGINGS REMAIN IN REACH.
[2021-05-30 04:00] VITALS: BP 132/70
--- NOTE | 2021-05-30 04:00 | NUR ---
RESTING IN BED QUIETLY. NO COMPLAINTS OF PAIN OR DISCOMFORT NOTED. NO DISTRESS. CALL LIGHT AND BELONGINGS WITHIN REACH.
--- NOTE | 2021-05-30 08:00 | NUR ---
PT AWAKE, ALERT AND ORIENTED X 4. PT DENIES ANY PAIN OR SOB AT THIS TIME. VS AND ASSESSMENT COMPLETE. LUNGS CLEAR ON RA. ABDOMEN SOFT ROUND AND NONTENDER. PERIPHERAL PULSES PALPABLE. IV INTACT AND PATENT. PT UP TO CHAIR TO HAVE BREAKFAST. SAFETY MEASURES ARE IN PLACE CALL LIGHT WITHIN REACH. WILL MONITOR PATIENT CLOSELY
[2021-05-30 08:03] VITALS: BP 140/64
[2021-05-30 11:00] VITALS: BP 121/60
--- NOTE | 2021-05-30 12:00 | NUR ---
PT RESTING COMFORTABLY IN BED. NO IMMEDIATE NEEDS AT THIS TIME
--- NOTE | 2021-05-30 16:00 | NUR ---
PT RESTING IN BED. NO COMPLAINTS OR NEEDS AT THIS TIME
[2021-05-30 16:48] VITALS: BP 140/57
--- NOTE | 2021-05-30 19:00 | NUR ---
RECEIVED REPORT DAY NURSE PATIENT RESTING IN BED, REMAINS ON CONTACT PLUS PRECAUTION, CALL LIGHT AT REACH.
--- NOTE | 2021-05-30 20:00 | NUR ---
PATIENT ALERT ORINTED ABLE TO MAKE NEEDS KNONW, WITH ONGOING IV OF NS @ 50CC/HR, INFUSING WELL ON LFA, REMAINS ON TEL SR 64, LBM 05/30, ACTIVE BOWEL SOUNDS, LUNG SOUNDS CLEAR, DENIES PAIN,LEFT LEG WARM TO TOUCH AND RED, ELEVATED, CALL LIGHT AT REACH.
[2021-05-30 20:17] VITALS: BP 109/63
--- NOTE | 2021-05-31 | NUR ---
PATIENT RESTING IN BED EYES CLOSED, NO DISCOMFORTS NOTED AT THIS TIME, CALL LIGHT AT REACH.
[2021-05-31 00:13] VITALS: BP 127/64
[2021-05-31 04:00] VITALS: BP 133/68
--- NOTE | 2021-05-31 04:59 | NUR ---
PATIENT RESTING IN BED WITH EYES CLSOED, BREATHING UNLABORED CALL LIGHT AT REACH.
[2021-05-31 05:57] LABS: HEMATOCRIT 32.1 % (39.0-50.0); HEMOGLOBIN 9.7 g/dl (14.0-18.0); MEAN CELL VOLUME 109.9 fL CALC (80.0-100.0); MEAN CORPUSCULAR HGB 33.2 pG CALC (26.0-32.0); MEAN CORPUSCULAR HGB CONC 30.2 g/dL CAL (32.0-36.0); RED BLOOD COUNT 2.92 mill/uL (4.70-6.10); RED CELL DISTRI WIDTH 16.2 % (11.5-15.5)
--- NOTE | 2021-05-31 06:07 | NUR ---
PATIENT HAS CRITICALLY WBC 49.5 BUT IS TREANDING DOWN FROM 62.2, MD AWARE OF THE TREND.
[2021-05-31 06:13] LABS: ANION GAP 11 (6-22 (CALC)); BUN 34 mg/dL (8-23); BUN/CREATININE RATIO 28 (12-20 (CALC)); CARBON DIOXIDE 22 mmol/l (22-30); CHLORIDE 110 mmol/l (95-108); CREATININE 1.2 mg/dL (0.7-1.3); GFR 58 ML/MIN (>=60 (CALC)); GFR FOR AFR.AMER. > 60 ML/MIN (>=60 (CALC)); POTASSIUM 3.9 mmol/l (3.5-5.1); SODIUM 140 mmol/l (137-146)
--- NOTE | 2021-05-31 06:55 | NUR ---
REPORT RECEIVED FROM NADYA FOWLER
[2021-05-31 08:35] VITALS: BP 126/54
--- NOTE | 2021-05-31 08:35 | NUR ---
PT RESTING IN RECLINER,A&O X3;VS OBTAINED AND ASSESSMENT COMPLETED;PT DENIES ANY CURRENT PAIN OR DISCOMFORTS,PAIN SCALE AND REPORTING EDUCATED;RESPIRATIONS EVEN AND UNLABORED ON RA,CLEAR LUNG SOUNDS;ABDOMEN SOFT ON PALPATION AND ACTIVE IN ALL 4 QUADRANTS;WEAK PEDAL PULSES;LLE REDDNESS AND WARMTH NOTED;ENCOURAGED ELEVATION OF BLE;TELE MONITORING IN PLACE;#22G TO LFA INFUSING NS @ 50ML/HR,SITE APPEARS HEALTHY AND ABX STARTED AT THIS TIME;PT DENIES ANY ADDITIONAL NEEDS AND IS ENCOURAGED TO CALL FOR ASSISTANCE IF NEEDED;FALL PRECAUTIONS IN PLACE WITH BED IN THE LOWEST POSITION AND CALL LIGHT IN REACH;WILL CONTINUE TO MONITOR
[2021-05-31] MEDS ORDERED: ZYVOX600 MG PO (09:24)
[2021-05-31] MEDS ORDERED: MAXIPIME1 GM IV (09:25)
--- NOTE | 2021-05-31 11:07 | NUR ---
AND LIYA ANRP AT BEDSIDE DISCUSSING POC.
[2021-05-31 11:12] VITALS: BP 113/62
--- NOTE | 2021-05-31 11:55 | NUR ---
PT OOB RESTING IN RECLINER;RESPIRATIONS EVEN AND UNLABORED ON RA;PT DENIES ANY CURRENT PAIN OR NEEDS;TELE MONITORING IN PLAVE;IV SITE PATENT INFUSING NS WITH EASE PER ORDER;CONTACT PRECAUTIONS REMAIN IN PLACE;PT EDUCATED ON PLANS TO D/C HOME THIS AFTERNOON AFTER ABX ADMINISTRATION AND VERBALIZES UNDERSTANDING;PT DENIES ANY ADDITIONAL NEEDS AND IS ENCOURAGED TO CALL FOR ASSISTANCE IF NEEDED;CALL LIGHT IN REACH;WILL CONTINUE TO MONITOR
[2021-05-31 14:30] VITALS: BP 116/62
--- NOTE | 2021-05-31 15:35 | NUR ---
PT RESTING IN SEMI FOWLERS POSITION;RESPIRATIONS EVEN AND UNLABORED ON RA;PT DENIES ANY CURRENT PAIN OR NEEDS;TELE MONITORING IN PLACE;IV SITE PATENT INFUSING NS WITH EASE, ABX STARTED AT THIS TIME. PER ECTORPHARMACIST IT IS OK TO GIVE 1800 DOSE EARLY;PT ENCOURAGED TO CALL FOR ASSISTANCE IF NEEDED;FALL PRECAUTIONS REMAIN IN PLACE WITH CALL LIGHT IN REACH;WILL CONTINUE TO MONITOR
--- NOTE | 2021-05-31 15:54 | NUR ---
Patient is not a good candidate for PT intervention at this time (patient is capable to move around the hospital room with no difficulty).
--- NOTE | 2021-05-31 16:30 | NUR ---
ALL DISCHARGE INSTRUCTIONS PROVIDED AT THIS TIME;PT INSTRUCTED TO F/U WITH PCP AND ONCOLOGIST OUTPATIENT;TAKE ADDITIONAL DOSE OF IV MAXIPIME TOMORROW AT [address] [facility] IV THERPAY SCHEDULED,TAKE X3 MORE DOSES OF ZYVOX PO WHICH WAS SENT TO PHARMACY;IV SITE REMAINS IN PLACE PER PT REQUEST FOR IV THERAPY TOMORROW;ALL HOME MEDICATIONS PROVIDED BACK TO PT;PT DENIES ANY ADDITIONAL QUESTIONS OR NEEDS;WC TO BE PROVIDED FOR D/C HOME;FAMILY TO TRANSPORT PT HOME;WILL CONTINUE TO MONITOR
--- NOTE | 2021-05-31 17:09 | NUR ---
Discharge instructions given. Patient verbalizes understanding of same. Discharged in stable condition via Wheelchair to Home with family. All belongings sent with pt. PT TRANSPORTED TO [facility] IN STABLE CONDITION VIA ACCOMPANIED BY IONA SIM;ALL BELONGINGS LEFT WITH PT INCLUDING D/C INSTRUCTIONS AND HOME MEDICATIONS;IV LEFT PATENT FOR IVF TOMORROW OUTPT;FAMILY TO TRANSPORT PT HOME.
== END 2021-05-31 17:09 | disposition home or self-care (01) | DRG 602 ==
LOC: ED 09:10 → ED-I 12:20 → ED 12:30 → MS2 12:31
PROVIDERS: Emergency Medicine; Internal Medicine; Nurse Practitioner; ADMIT Internal Medicine; ATTEND Internal Medicine
DX: L03.116 Cellulitis of left lower limb (principal); J18.9 Pneumonia, unspecified organism; C91.10 Chronic lymphocytic leukemia of B-cell type not having achieved remission; N17.9 Acute kidney failure, unspecified; A00.9 Cholera, unspecified; I12.9 Hypertensive chronic kidney disease with stage 1 through stage 4 chronic kidney disease, or unspecified chronic kidney disease; N18.30 Chronic kidney disease, stage 3 unspecified; K21.9 Gastro-esophageal reflux disease without esophagitis; M19.90 Unspecified osteoarthritis, unspecified site; N40.0 Benign prostatic hyperplasia without lower urinary tract symptoms; I87.2 Venous insufficiency (chronic) (peripheral); Z85.828 Personal history of other malignant neoplasm of skin; Z86.718 Personal history of other venous thrombosis and embolism; Z87.11 Personal history of peptic ulcer disease; Z86.711 Personal history of pulmonary embolism; Z20.822 Contact with and (suspected) exposure to COVID-19; Z79.01 Long term (current) use of anticoagulants
CPT/HCPCS: G0378; J0692; J2020; J3370; Q3014

== ENCOUNTER 2022-07-04 04:47 | Emergency (ER) | payer MEDICARE ==
[~2022-07-04] VITALS: Ht 175.3 cm; Wt 106.0 kg
[~2022-07-04 04:47] MED LIST changes: +CALQUENCE100 MG PO; +MAXIPIME1 GM IV; +PREDNISONE20 MG PO; +ZYVOX600 MG PO
[2022-07-04 05:08] VITALS: BP 140/64
[2022-07-04] MEDS ORDERED: CO Q 10100 MG PO (05:14)
[2022-07-04] MEDS ORDERED: GINGER ROOT550 MG PO (05:14)
[2022-07-04] MEDS ORDERED: GINSENG PO (05:15)
[2022-07-04] MEDS ORDERED: GREEN TEA250 MG PO (05:16)
[2022-07-04] MEDS ORDERED: LUTEIN20 MG PO (05:17)
[2022-07-04] MEDS ORDERED: LYCOPENE PO (05:17)
[2022-07-04] MEDS ORDERED: PRESERVISION PO (05:19)
[2022-07-04] MEDS ORDERED: SAW PALMETTO450 MG PO (05:19)
[2022-07-04] MEDS ORDERED: VITAMIN B6100 MG PO (05:21)
[2022-07-04] MEDS ORDERED: TURMERIC500 MG PO (05:21)
[2022-07-04] MEDS ORDERED: VITAMIN B-125000 MC1 PO (05:23)
[2022-07-04] MEDS ORDERED: VITAMIN C500 M6 PO (05:23)
[2022-07-04] MEDS ORDERED: VITAMIN D35000 UNI1 PO (05:24)
[2022-07-04] MEDS ORDERED: ZINC PO (05:25)
[2022-07-04 05:31] LABS: HEMATOCRIT 40.5 % (39.0-50.0); HEMOGLOBIN 12.3 g/dl (14.0-18.0); IMMATURE GRANULOCYTES 0.1 % (0.0-5.0); MEAN CELL VOLUME 106.6 fL CALC (80.0-100.0); MEAN CORPUSCULAR HGB 32.4 pG CALC (26.0-32.0); MEAN CORPUSCULAR HGB CONC 30.4 g/dL CAL (32.0-36.0); PLATELET COUNT 182 thou/uL (130-400); RED CELL DISTRI WIDTH 16.3 % (11.5-15.5)
[2022-07-04 05:33] LABS: MANUAL DIFFERENTIAL YES
[2022-07-04 05:40] LABS: INTERNATIONAL NORMALIZED RATIO 1.1 RATIO (0.7-1.3); PROTHROMBIN TIME 10.9 SECONDS (9.0-12.5)
[2022-07-04 05:44] LABS: ALBUMIN 4.4 g/dL (3.2-5.0); BILIRUBIN, TOTAL 0.7 mg/dL (0.0-1.4); CREATININE 1.4 mg/dL (0.7-1.3); TOTAL PROTEIN 7.2 g/dL (6.3-8.2)
[2022-07-04 05:47] LABS: POTASSIUM 5.5 mmol/l (3.5-5.1)
[2022-07-04 05:57] LABS: BAND 0 % (0-8); IMMATURE CELLS 3 %
[2022-07-04 07:02] LABS: URINE BILIRUBIN - DIPSTICK NEGATIVE (NEGATIVE); URINE BLOOD DIPSTICK LARGE (NEGATIVE); URINE GLUCOSE - DIPSTICK NEGATIVE (NEGATIVE); URINE LEUK ESTERASE NEGATIVE (NEGATIVE); URINE NITRITE - DIPSTICK NEGATIVE (Negative); URINE PH 6.5 (4.5-8.0); URINE PROTEIN - DIPSTICK TRACE mg/dL (NEG-TRACE); URINE UROBILINOGEN - DIPSTICK 0.2 E.U./dL (0.2)
[2022-07-04 07:04] LABS: URINE COLOR RED; URINE KETONE NEGATIVE (NEGATIVE); URINE RBC >100 RBC/hpf (0-5)
[2022-07-04 07:06] LABS: URINE BACTERIA MODERATE hpf; URINE EPITHELIAL CELLS FEW EPI/hpf (0-FEW)
[2022-07-04] MEDS ORDERED: OMNI-PAC300 MG PO (07:23)
[2022-07-04 07:37] VITALS: BP 140/64
[2022-07-04] MEDS ORDERED: PREVACID30 M3 PO (18:45)
[2022-07-04] MEDS ORDERED: PREDNISONE10 MG PO (18:46)
== END 2022-07-04 07:50 | disposition home or self-care (01) ==
LOC: ED 04:47
PROVIDERS: Emergency Medicine
DX: R31.9 Hematuria, unspecified (principal); R60.1 Generalized edema; N39.0 Urinary tract infection, site not specified; I12.9 Hypertensive chronic kidney disease with stage 1 through stage 4 chronic kidney disease, or unspecified chronic kidney disease; N18.30 Chronic kidney disease, stage 3 unspecified; C91.10 Chronic lymphocytic leukemia of B-cell type not having achieved remission; B96.89 Other specified bacterial agents as the cause of diseases classified elsewhere; Z86.711 Personal history of pulmonary embolism; Z86.718 Personal history of other venous thrombosis and embolism; Z79.01 Long term (current) use of anticoagulants; N47.1 Phimosis; E11.22 Type 2 diabetes mellitus with diabetic chronic kidney disease

== ENCOUNTER 2022-07-04 13:05 | Emergency (ER) | payer MEDICARE ==
[2022-07-04] VITALS (7 sets, daily range): BP systolic 120–140; BP diastolic 51–68
[~2022-07-04] VITALS: Ht 175.3 cm; Wt 104.5 kg
[~2022-07-04 13:05] MED LIST changes: +CO Q 10100 MG PO; +GINGER ROOT550 MG PO; +GINSENG PO; +GREEN TEA250 MG PO; +LUTEIN20 MG PO; +OMNI-PAC300 MG PO; +SAW PALMETTO450 MG PO; +TURMERIC500 MG PO; +VITAMIN B-125000 MC1 PO; +VITAMIN B6100 MG PO; +VITAMIN C500 M6 PO; +VITAMIN D35000 UNI1 PO; +ZINC PO
[2022-07-04 14:09] LABS: ALBUMIN 4.3 g/dL (3.2-5.0); ALKALINE PHOSPHATASE 84 u/l (38-126); ANION GAP 13 (6-22 (CALC)); BILIRUBIN, TOTAL 0.7 mg/dL (0.0-1.4); BUN 37 mg/dL (8-23); BUN/CREATININE RATIO 28 (12-20 (CALC)); CARBON DIOXIDE 27 mmol/l (22-30); CHLORIDE 107 mmol/l (95-108); CREATININE 1.3 mg/dL (0.7-1.3); GFR FOR AFR.AMER. > 60 ML/MIN (>=60 (CALC)); GFR OTHER RACES 52 ML/MIN (>=60 (CALC)); POTASSIUM 4.7 mmol/l (3.5-5.1); SGOT/AST 27 u/l (19-48); SODIUM 142 mmol/l (137-146); TOTAL PROTEIN 6.7 g/dL (6.3-8.2)
[2022-07-04 14:10] LABS: HEMATOCRIT 38.6 % (39.0-50.0); HEMOGLOBIN 11.9 g/dl (14.0-18.0); IMMATURE GRANULOCYTES 0.1 % (0.0-5.0); MANUAL DIFFERENTIAL YES; MEAN CELL VOLUME 106.6 fL CALC (80.0-100.0); MEAN CORPUSCULAR HGB 32.9 pG CALC (26.0-32.0); MEAN CORPUSCULAR HGB CONC 30.8 g/dL CAL (32.0-36.0); PLATELET COUNT 192 thou/uL (130-400); RED BLOOD COUNT 3.62 mill/uL (4.70-6.10); RED CELL DISTRI WIDTH 16.6 % (11.5-15.5)
[2022-07-04 14:17] LABS: BAND 0 % (0-8)
[2022-07-04] MEDS ORDERED: PREVACID30 M3 PO (18:45)
[2022-07-04] MEDS ORDERED: PREDNISONE10 MG PO (18:46)
== END 2022-07-04 19:40 | disposition short-term general hospital (02) ==
LOC: ED 13:05
PROVIDERS: Family Medicine
DX: N47.1 Phimosis (principal); N39.0 Urinary tract infection, site not specified; R31.9 Hematuria, unspecified; I12.9 Hypertensive chronic kidney disease with stage 1 through stage 4 chronic kidney disease, or unspecified chronic kidney disease; E11.22 Type 2 diabetes mellitus with diabetic chronic kidney disease; N18.30 Chronic kidney disease, stage 3 unspecified; C91.10 Chronic lymphocytic leukemia of B-cell type not having achieved remission; Z86.718 Personal history of other venous thrombosis and embolism; Z86.711 Personal history of pulmonary embolism; Z79.01 Long term (current) use of anticoagulants

== ENCOUNTER 2022-09-22 13:20 | Inpatient (IN) | payer MEDICARE ==
[2022-09-22] VITALS (13 sets, daily range): BP systolic 91–126; BP diastolic 38–63
[~2022-09-22] VITALS: Ht 175.3 cm; Wt 104.2 kg
[~2022-09-22 13:20] MED LIST changes: +PREDNISONE10 MG PO; +PREVACID30 M3 PO
[2022-09-22 14:15] LABS: BASO% 0.6 % (0-3); HEMATOCRIT 35.8 % (39.0-50.0); HEMOGLOBIN 11.5 g/dl (14.0-18.0); IMMATURE GRANULOCYTES 0.6 % (0.0-5.0); LYMPH% 76.5 % (15-41); MEAN CELL VOLUME 98.9 fL CALC (80.0-100.0); MEAN CORPUSCULAR HGB 31.8 pG CALC (26.0-32.0); MEAN CORPUSCULAR HGB CONC 32.1 g/dL CAL (32.0-36.0); MONO% 1.4 % (2-13); NEUT# 1.02 thou/uL (1.82-7.42); NEUT% 20.9 % (42-76); RED BLOOD COUNT 3.62 mill/uL (4.70-6.10); RED CELL DISTRI WIDTH 15.7 % (11.5-15.5)
[2022-09-22 14:30] LABS: ALBUMIN 4.3 g/dL (3.2-5.0); BILIRUBIN, TOTAL 0.9 mg/dL (0.0-1.4); CREATININE 1.9 mg/dL (0.7-1.3); POTASSIUM 4.9 mmol/l (3.5-5.1); TOTAL PROTEIN 6.7 g/dL (6.3-8.2)
[2022-09-22] MEDS ORDERED: FINASTERIDE5 MG PO (17:12)
[2022-09-22] MEDS ORDERED: FUROSEMIDE20 MG PO (17:12)
[2022-09-22] MEDS ORDERED: METOPROL TAR25 MG PO (17:13)
[2022-09-22] MEDS ORDERED: PREDNISONE20 MG PO (18:52)
[2022-09-22] MEDS ORDERED: LANSOPRAZOLE15 MG PO (18:53)
[2022-09-23 04:34] VITALS: BP 91/48
[2022-09-23 06:29] LABS: MEAN CELL VOLUME 102.1 fL CALC (80.0-100.0); MEAN CORPUSCULAR HGB 31.8 pG CALC (26.0-32.0); MEAN CORPUSCULAR HGB CONC 31.1 g/dL CAL (32.0-36.0); RED BLOOD COUNT 2.8 mill/uL (4.70-6.10); RED CELL DISTRI WIDTH 15.8 % (11.5-15.5)
[2022-09-23 06:37] VITALS: BP 91/46
[2022-09-23 06:42] LABS: HEMATOCRIT 28.6 % (39.0-50.0); HEMOGLOBIN 8.9 g/dl (14.0-18.0)
[2022-09-23 06:44] LABS: BILIRUBIN, TOTAL 0.9 mg/dL (0.0-1.4); CREATININE 2.3 mg/dL (0.7-1.3); MAGNESIUM 1.9 mg/dL (1.6-2.3)
[2022-09-23 06:58] LABS: ALBUMIN 2.9 g/dL (3.2-5.0); POTASSIUM 5.6 mmol/l (3.5-5.1); TOTAL PROTEIN 4.8 g/dL (6.3-8.2)
[2022-09-23 15:49] VITALS: BP 127/60
[2022-09-23 19:21] VITALS: BP 109/46
[2022-09-23 23:49] VITALS: BP 93/43
[2022-09-24 02:18] LABS: URINE BILIRUBIN - DIPSTICK NEGATIVE (NEGATIVE); URINE BLOOD DIPSTICK NEGATIVE (NEGATIVE); URINE CLARITY CLEAR; URINE COLOR YELLOW; URINE GLUCOSE - DIPSTICK NEGATIVE (NEGATIVE); URINE KETONE NEGATIVE (NEGATIVE); URINE LEUK ESTERASE NEGATIVE (Negative); URINE NITRITE - DIPSTICK NEGATIVE (Negative); URINE PH 5.5 (4.5-8.0); URINE PROTEIN - DIPSTICK NEGATIVE (NEG-TRACE); URINE SPECIFIC GRAVITY 1.025; URINE UROBILINOGEN - DIPSTICK 0.2 E.U./dL (0.2)
[2022-09-24 04:48] VITALS: BP 128/52
[2022-09-24 06:00] LABS: HEMATOCRIT 27.3 % (39.0-50.0); HEMOGLOBIN 8.7 g/dl (14.0-18.0); LYMPH% 27.2 % (15-41); MEAN CELL VOLUME 100.7 fL CALC (80.0-100.0); MEAN CORPUSCULAR HGB 32.1 pG CALC (26.0-32.0); MEAN CORPUSCULAR HGB CONC 31.9 g/dL CAL (32.0-36.0); MONO% 1.6 % (2-13); NEUT# 1.46 thou/uL (1.82-7.42); NEUT% 60.1 % (42-76); RED BLOOD COUNT 2.71 mill/uL (4.70-6.10); RED CELL DISTRI WIDTH 15.7 % (11.5-15.5)
[2022-09-24 06:04] LABS: ALBUMIN 2.6 g/dL (3.2-5.0); ALKALINE PHOSPHATASE 52 u/l (38-126); BILIRUBIN, TOTAL 0.9 mg/dL (0.0-1.4); CARBON DIOXIDE 20 mmol/l (22-30); CHLORIDE 106 mmol/l (95-108); CREATININE 2.2 mg/dL (0.7-1.3); GFR FOR AFR.AMER. 34 ML/MIN (>=60 (CALC)); GFR OTHER RACES 28 ML/MIN (>=60 (CALC)); SGOT/AST 16 u/l (19-48); SODIUM 135 mmol/l (137-146); TOTAL PROTEIN 4.7 g/dL (6.3-8.2)
[2022-09-24 06:15] LABS: IMMATURE GRANULOCYTES 11.1 % (0.0-5.0)
[2022-09-24 06:31] LABS: ANION GAP 15 (6-22 (CALC)); BUN 82 mg/dL (8-23); BUN/CREATININE RATIO 37 (12-20 (CALC)); POTASSIUM 5.5 mmol/l (3.5-5.1)
[2022-09-24 06:41] VITALS: BP 107/48
[2022-09-24 09:27] VITALS: BP 126/54
[2022-09-24 14:24] VITALS: BP 112/40; BP 127/51
[2022-09-24 14:47] VITALS: BP 112/40
[2022-09-24 19:41] VITALS: BP 104/46
[2022-09-25] VITALS (7 sets, daily range): BP systolic 96–139; BP diastolic 42–62
[2022-09-25 06:05] LABS: HEMATOCRIT 25.3 % (39.0-50.0); HEMOGLOBIN 8.4 g/dl (14.0-18.0); IMMATURE GRANULOCYTES 0.2 % (0.0-5.0); MEAN CELL VOLUME 98.1 fL CALC (80.0-100.0); MEAN CORPUSCULAR HGB 32.6 pG CALC (26.0-32.0); MEAN CORPUSCULAR HGB CONC 33.2 g/dL CAL (32.0-36.0); NEUT# 3.45 thou/uL (1.82-7.42); NEUT% 84.8 % (42-76); RED BLOOD COUNT 2.58 mill/uL (4.70-6.10); RED CELL DISTRI WIDTH 15.7 % (11.5-15.5)
[2022-09-25 06:32] LABS: ALBUMIN 2.4 g/dL (3.2-5.0); CREATININE 1.7 mg/dL (0.7-1.3); MAGNESIUM 2.1 mg/dL (1.6-2.3); POTASSIUM 4.7 mmol/l (3.5-5.1)
[2022-09-26 03:36] VITALS: BP 115/44
[2022-09-26 07:40] VITALS: BP 125/51
[2022-09-26 09:50] LABS: HEMATOCRIT 26.7 % (39.0-50.0); HEMOGLOBIN 8.3 g/dl (14.0-18.0); MEAN CELL VOLUME 99.3 fL CALC (80.0-100.0); MEAN CORPUSCULAR HGB 30.9 pG CALC (26.0-32.0); MEAN CORPUSCULAR HGB CONC 31.1 g/dL CAL (32.0-36.0); RED BLOOD COUNT 2.69 mill/uL (4.70-6.10); RED CELL DISTRI WIDTH 15.9 % (11.5-15.5)
[2022-09-26 10:09] LABS: ALBUMIN 2.4 g/dL (3.2-5.0); ALKALINE PHOSPHATASE 62 u/l (38-126); ANION GAP 5 (6-22 (CALC)); BILIRUBIN, TOTAL 0.8 mg/dL (0.0-1.4); BUN 51 mg/dL (8-23); BUN/CREATININE RATIO 41 (12-20 (CALC)); CHLORIDE 105 mmol/l (95-108); CREATININE 1.2 mg/dL (0.7-1.3); GFR FOR AFR.AMER. > 60 ML/MIN (>=60 (CALC)); GFR OTHER RACES 57 ML/MIN (>=60 (CALC)); POTASSIUM 4.5 mmol/l (3.5-5.1); SGOT/AST 18 u/l (19-48); SODIUM 139 mmol/l (137-146); TOTAL PROTEIN 4.4 g/dL (6.3-8.2)
[2022-09-26 10:10] LABS: CARBON DIOXIDE 34 mmol/l (22-30)
[2022-09-26 11:44] VITALS: BP 136/64
[2022-09-26 15:14] VITALS: BP 124/58
[2022-09-26 18:48] VITALS: BP 122/50
[2022-09-27 03:46] VITALS: BP 138/38
[2022-09-27 06:24] LABS: EOS% 0.8 % (0-8); HEMATOCRIT 28.5 % (39.0-50.0); IMMATURE GRANULOCYTES 0.8 % (0.0-5.0); LYMPH% 14.1 % (15-41); MEAN CELL VOLUME 101.1 fL CALC (80.0-100.0); MEAN CORPUSCULAR HGB 31.9 pG CALC (26.0-32.0); MEAN CORPUSCULAR HGB CONC 31.6 g/dL CAL (32.0-36.0); MONO% 1.2 % (2-13); NEUT# 2.13 thou/uL (1.82-7.42); NEUT% 83.1 % (42-76); RED BLOOD COUNT 2.82 mill/uL (4.70-6.10)
[2022-09-27 06:30] VITALS: BP 116/51
[2022-09-27 06:31] LABS: ALBUMIN 2.8 g/dL (3.2-5.0); BILIRUBIN, TOTAL 0.8 mg/dL (0.0-1.4); CREATININE 1.6 mg/dL (0.7-1.3); POTASSIUM 4.8 mmol/l (3.5-5.1); TOTAL PROTEIN 5.3 g/dL (6.3-8.2)
[2022-09-27 13:27] VITALS: BP 114/44
[2022-09-27 19:17] VITALS: BP 125/47
[2022-09-28 02:47] LABS: EOS% 0.8 % (0-8); HEMATOCRIT 29.7 % (39.0-50.0); HEMOGLOBIN 9.1 g/dl (14.0-18.0); IMMATURE GRANULOCYTES 0.8 % (0.0-5.0); LYMPH% 15.8 % (15-41); MEAN CORPUSCULAR HGB CONC 30.6 g/dL CAL (32.0-36.0); MONO% 1.9 % (2-13); NEUT# 2.1 thou/uL (1.82-7.42); NEUT% 80.7 % (42-76); RED BLOOD COUNT 2.94 mill/uL (4.70-6.10); RED CELL DISTRI WIDTH 15.8 % (11.5-15.5)
[2022-09-28 03:02] LABS: ALBUMIN 2.9 g/dL (3.2-5.0); ALKALINE PHOSPHATASE 73 u/l (38-126); ANION GAP 7 (6-22 (CALC)); BUN 46 mg/dL (8-23); BUN/CREATININE RATIO 35 (12-20 (CALC)); CARBON DIOXIDE 35 mmol/l (22-30); CHLORIDE 101 mmol/l (95-108); CREATININE 1.3 mg/dL (0.7-1.3); GFR FOR AFR.AMER. > 60 ML/MIN (>=60 (CALC)); GFR OTHER RACES 52 ML/MIN (>=60 (CALC)); SGOT/AST 22 u/l (19-48); SODIUM 138 mmol/l (137-146); TOTAL PROTEIN 5.5 g/dL (6.3-8.2)
[2022-09-28 03:07] LABS: POTASSIUM 5.2 mmol/l (3.5-5.1)
[2022-09-28 04:57] VITALS: BP 140/60
[2022-09-28 06:40] VITALS: BP 140/60
[2022-09-28 15:35] VITALS: BP 140/60
[2022-09-29 04:06] VITALS: BP 117/42
[2022-09-29 06:49] VITALS: BP 181/72
[2022-09-29 07:17] LABS: BASO% 0.3 % (0-3); EOS% 0.6 % (0-8); HEMATOCRIT 30.6 % (39.0-50.0); HEMOGLOBIN 9.4 g/dl (14.0-18.0); IMMATURE GRANULOCYTES 0.9 % (0.0-5.0); LYMPH% 15.9 % (15-41); MEAN CELL VOLUME 100.3 fL CALC (80.0-100.0); MEAN CORPUSCULAR HGB 30.8 pG CALC (26.0-32.0); MEAN CORPUSCULAR HGB CONC 30.7 g/dL CAL (32.0-36.0); MONO% 0.6 % (2-13); NEUT# 2.73 thou/uL (1.82-7.42); NEUT% 81.7 % (42-76); RED BLOOD COUNT 3.05 mill/uL (4.70-6.10); RED CELL DISTRI WIDTH 15.7 % (11.5-15.5)
[2022-09-29 07:42] LABS: ALBUMIN 2.7 g/dL (3.2-5.0); ALKALINE PHOSPHATASE 75 u/l (38-126); ANION GAP 10 (6-22 (CALC)); BILIRUBIN, TOTAL 1.2 mg/dL (0.0-1.4); BUN 47 mg/dL (8-23); BUN/CREATININE RATIO 40 (12-20 (CALC)); CARBON DIOXIDE 32 mmol/l (22-30); CHLORIDE 100 mmol/l (95-108); CREATININE 1.2 mg/dL (0.7-1.3); GFR FOR AFR.AMER. > 60 ML/MIN (>=60 (CALC)); GFR OTHER RACES 57 ML/MIN (>=60 (CALC)); SGOT/AST 24 u/l (19-48); SODIUM 137 mmol/l (137-146); TOTAL PROTEIN 4.8 g/dL (6.3-8.2)
[2022-09-29 13:58] VITALS: BP 112/40
[2022-09-29 14:47] VITALS: BP 105/45
[2022-09-29 14:48] VITALS: BP 105/45
[2022-09-29 19:00] VITALS: BP 136/66
[2022-09-30 00:04] VITALS: BP 107/48
[2022-09-30 04:06] VITALS: BP 143/53
[2022-09-30 05:09] LABS: BASO% 0.4 % (0-3); EOS% 1.9 % (0-8); HEMATOCRIT 28.7 % (39.0-50.0); HEMOGLOBIN 8.6 g/dl (14.0-18.0); LYMPH% 15.4 % (15-41); MEAN CELL VOLUME 102.5 fL CALC (80.0-100.0); MEAN CORPUSCULAR HGB 30.7 pG CALC (26.0-32.0); MONO% 0.8 % (2-13); NEUT# 2.17 thou/uL (1.82-7.42); NEUT% 81.5 % (42-76); RED BLOOD COUNT 2.8 mill/uL (4.70-6.10); RED CELL DISTRI WIDTH 15.8 % (11.5-15.5)
[2022-09-30 05:35] LABS: ALBUMIN 2.5 g/dL (3.2-5.0); ALKALINE PHOSPHATASE 67 u/l (38-126); ANION GAP 9 (6-22 (CALC)); BUN 45 mg/dL (8-23); BUN/CREATININE RATIO 39 (12-20 (CALC)); CARBON DIOXIDE 31 mmol/l (22-30); CHLORIDE 101 mmol/l (95-108); CREATININE 1.2 mg/dL (0.7-1.3); GFR FOR AFR.AMER. > 60 ML/MIN (>=60 (CALC)); GFR OTHER RACES 57 ML/MIN (>=60 (CALC)); POTASSIUM 4.6 mmol/l (3.5-5.1); SGOT/AST 21 u/l (19-48); SODIUM 135 mmol/l (137-146); TOTAL PROTEIN 4.5 g/dL (6.3-8.2)
[2022-09-30 05:36] LABS: BILIRUBIN, TOTAL 0.6 mg/dL (0.2-1.3)
[2022-09-30 07:24] VITALS: BP 133/47
[2022-09-30] MEDS ORDERED: ROCEPHIN1 G1 IV (12:42)
[2022-09-30] MEDS ORDERED: LORTAB5 PO (12:42)
[2022-09-30 14:42] VITALS: BP 115/45
== END 2022-09-30 16:25 | DRG 602 ==
LOC: ED 13:20 → ED-I 15:40 → ED 15:54 → MS2 15:55
PROVIDERS: Internal Medicine; Internal Medicine Nephrology; Nurse Practitioner Family; ADMIT Internal Medicine; ATTEND Internal Medicine
DX: L03.116 Cellulitis of left lower limb (principal); E88.3 Tumor lysis syndrome; C91.10 Chronic lymphocytic leukemia of B-cell type not having achieved remission; N17.9 Acute kidney failure, unspecified; E87.20 Acidosis, unspecified; E87.1 Hypo-osmolality and hyponatremia; R78.81 Bacteremia; T45.1X5A Adverse effect of antineoplastic and immunosuppressive drugs, initial encounter; I12.9 Hypertensive chronic kidney disease with stage 1 through stage 4 chronic kidney disease, or unspecified chronic kidney disease; N18.31 Chronic kidney disease, stage 3a; E86.9 Volume depletion, unspecified; I95.9 Hypotension, unspecified; D63.1 Anemia in chronic kidney disease; E87.5 Hyperkalemia; I89.0 Lymphedema, not elsewhere classified; I87.2 Venous insufficiency (chronic) (peripheral); N40.0 Benign prostatic hyperplasia without lower urinary tract symptoms; K21.9 Gastro-esophageal reflux disease without esophagitis; M19.90 Unspecified osteoarthritis, unspecified site; E83.39 Other disorders of phosphorus metabolism; E83.51 Hypocalcemia; Z86.718 Personal history of other venous thrombosis and embolism
CPT/HCPCS: G0378; J0692; J3370; Q5106 EC

== ENCOUNTER 2023-01-18 01:12 | Observation (INO) | payer MEDICARE ==
[~2023-01-18] VITALS: Ht 175.3 cm; Wt 114.6 kg
[2023-01-18] VITALS (31 sets, daily range): BP systolic 87–170; BP diastolic 39–84
[~2023-01-18 01:12] MED LIST changes: +FUROSEMIDE20 MG PO; +LANSOPRAZOLE15 MG PO; +METOPROL TAR25 MG PO; +ROCEPHIN1 G1 IV
[2023-01-18] MEDS ORDERED: PRESERVISION AREDS 2 (01:40)
[2023-01-18] MEDS ORDERED: VENCLEXTA100 MG (01:41)
[2023-01-18 02:31] LABS: BASO% 0.3 % (0-3); LYMPH% 6.5 % (15-41); MEAN CORPUSCULAR HGB 27.2 pG CALC (26.0-32.0); MEAN CORPUSCULAR HGB CONC 30.6 g/dL CAL (32.0-36.0); MONO% 13.7 % (2-13); NEUT# 4.59 thou/uL (1.82-7.42); NEUT% 73.4 % (42-76); RED BLOOD COUNT 5.04 mill/uL (4.70-6.10); RED CELL DISTRI WIDTH 15.7 % (11.5-15.5)
[2023-01-18 02:39] LABS: HEMATOCRIT 44.7 % (39.0-50.0); HEMOGLOBIN 13.7 g/dl (14.0-18.0); IMMATURE GRANULOCYTES 6.1 % (0.0-5.0); MEAN CELL VOLUME 88.7 fL CALC (80.0-100.0)
[2023-01-18 02:52] LABS: ALKALINE PHOSPHATASE 88 u/l (38-126); ANION GAP 11 (6-22 (CALC)); BUN 36 mg/dL (8-23); BUN/CREATININE RATIO 31 (12-20 (CALC)); CARBON DIOXIDE 29 mmol/l (22-30); CHLORIDE 103 mmol/l (95-108); CREATININE 1.1 mg/dL (0.7-1.3); GFR FOR AFR.AMER. > 60 ML/MIN (>=60 (CALC)); GFR OTHER RACES > 60 ML/MIN (>=60 (CALC)); POTASSIUM 3.9 mmol/l (3.5-5.1); SODIUM 139 mmol/l (137-146)
[2023-01-18 02:54] LABS: ALBUMIN 3.8 g/dL (3.2-5.0); BILIRUBIN, TOTAL 0.3 mg/dL (0.2-1.3); SGOT/AST 62 u/l (19-48); TOTAL PROTEIN 5.8 g/dL (6.3-8.2)
[2023-01-18 03:30] LABS: URINE BILIRUBIN - DIPSTICK NEGATIVE (NEGATIVE); URINE BLOOD DIPSTICK NEGATIVE (NEGATIVE); URINE COLOR YELLOW; URINE GLUCOSE - DIPSTICK NEGATIVE (NEGATIVE); URINE KETONE NEGATIVE (NEGATIVE); URINE LEUK ESTERASE NEGATIVE (NEGATIVE); URINE PROTEIN - DIPSTICK NEGATIVE (NEG-TRACE); URINE SPECIFIC GRAVITY 1.015; URINE UROBILINOGEN - DIPSTICK 0.2 E.U./dL (0.2)
[2023-01-18 03:31] LABS: URINE NITRITE - DIPSTICK NEGATIVE (Negative)
[2023-01-18] MEDS ORDERED: AMOX/K CLAV875 M1 PO (12:46)
== END 2023-01-18 16:30 | disposition home or self-care (01) ==
LOC: ED 01:12 → ED-I 05:50 → ED 06:18 → MS2 06:19
PROVIDERS: Emergency Medicine; ADMIT Internal Medicine; ATTEND Internal Medicine
DX: R50.9 Fever, unspecified (principal); R53.1 Weakness; I12.9 Hypertensive chronic kidney disease with stage 1 through stage 4 chronic kidney disease, or unspecified chronic kidney disease; N18.30 Chronic kidney disease, stage 3 unspecified; C91.10 Chronic lymphocytic leukemia of B-cell type not having achieved remission; N40.0 Benign prostatic hyperplasia without lower urinary tract symptoms; K21.9 Gastro-esophageal reflux disease without esophagitis; Z86.718 Personal history of other venous thrombosis and embolism; Z79.01 Long term (current) use of anticoagulants; Z87.11 Personal history of peptic ulcer disease; Z86.711 Personal history of pulmonary embolism; Z79.899 Other long term (current) drug therapy; Z20.822 Contact with and (suspected) exposure to COVID-19
CPT/HCPCS: Q9967

== ENCOUNTER 2023-08-28 08:07 | Emergency (ER) | payer MEDICARE ==
[~2023-08-28] VITALS: Ht 175.3 cm; Wt 117.0 kg
[~2023-08-28 08:07] MED LIST changes: +PRESERVISION AREDS 2; +VENCLEXTA100 MG
[2023-08-28 08:41] VITALS: BP 151/63
== END 2023-08-28 08:44 | disposition home or self-care (01) ==
LOC: ED 08:07
DX: L98.9 Disorder of the skin and subcutaneous tissue, unspecified (principal); C91.10 Chronic lymphocytic leukemia of B-cell type not having achieved remission; I12.9 Hypertensive chronic kidney disease with stage 1 through stage 4 chronic kidney disease, or unspecified chronic kidney disease; N18.30 Chronic kidney disease, stage 3 unspecified